=== PATIENT | female | born 1955 | race Caucasian/White ===

== ENCOUNTER → 2016-11-14 | Outpatient (CLI) | payer OTHER, MEDICAID ==
--- NOTE | 2016-11-14 19:19 | CT ---
Unenhanced CT Scan of the Chest Clinical History: 61-year-old female with a 40 year tobacco use history. Evaluate the condition of th e patient's lungs. ICD10 Diagnostic Code: F17.200. TECHNIQUE: A multidetector unenhanced helical CT scan was obtained from the base of the neck inferior ly to the upper abdomen, with images reformatted at 1.50 mm increments, and reviewed at a variety of window and level settings. Parasagittal and paracoronal reconstructed images are reviewed on the work station. The DFOV is 34.2 cm. A dose reduction protocol was used. COMPARISON STUDY: Chest radiography, dated April 20, 2010. FINDINGS: The lungs are well-expanded. There is some mild central perihilar bronchial wall thickening . There is some minimal centrilobular emphysema. There is no subpleural bullous change. There is a 3 mm subpleural nodule in the lateral left lower lobe on series 4 image 115. According to Fleischner So ciety guidelines, follow up CT imaging in 12 months is recommended in this high risk patient. There i s some minimal linear scarring in the inferolateral lingula. There is minor dependent change in the p osterior right costophrenic angle, and there is no focal infiltrate or pleural effusion. There is no adenopathy. The thoracic aortic contour cardiac chambers and the pericardium are normal. The visualiz ed upper abdomen is unremarkable. The osseous structures are age-appropriate, with some midthoracic d egenerative change. There is no lytic or blastic lesion. IMPRESSION: Mild peribronchial thickening and some minimal early centrilobular emphysema with a likel y-benign subpleural 3 mm nodule in the lateral left lower lobe. RECOMMENDATION: A [address] reevaluation is recommended in this patient with a chronic tobacco use history.
== END ==
LOC: FIMAGING 10:52
PROVIDERS: ATTEND Family Medicine
DX: R91.1 Solitary pulmonary nodule (principal); F17.200 Nicotine dependence, unspecified, uncomplicated

== ENCOUNTER → 2017-01-23 | Outpatient (CLI) | payer OTHER, MEDICAID | LOC: BHFA 14:30 | PROVIDERS: ATTEND Internal Medicine Cardiovascular Disease | DX: J44.9 Chronic obstructive pulmonary disease, unspecified (principal); F17.200 Nicotine dependence, unspecified, uncomplicated ==

== ENCOUNTER 2017-05-02 15:57 | Emergency (ER) | payer OTHER, MEDICAID ==
[2017-05-02 16:23] VITALS: BP 133/77; PULSE 82; RESP 18; TEMP 98.2; O2SAT 98
[2017-05-02] MEDS ORDERED: TDAP ADULT 0.5 ML INJ (BOOSTRIX) IM ONE ×2 (17:53→18:00)
--- NOTE | 2017-05-02 17:59 | EDPHY ---
H & P Stated Complaint: Pt's vaccinated cat bit L elbow about 4-5 days ago;under tx for cellulitis Time Seen by Provider: 05/02/17 17:59 - Personal History Current Tetanus Diphtheria and Acellular Pertussis (TDAP): Unsure Tetanus Vaccine Date: > 10 YEARS - Medical/Surgical History Hx Asthma: No Hx Chronic Respiratory Disease: No Hx Diabetes: No Hx Cardiac Disease: No Hx Renal Disease: No Hx Cirrhosis: No Hx Alcoholism: Yes Hx HIV/AIDS: No Hx Splenectomy or Spleen Trauma: No Other PMH: anxiety, depression, psychosis, PTSD - Social History Smoking Status: Current every day smoker Constitutional: Initial Vital Signs Temperature (C) 36.8 C 05/02/17 16:15 Heart Rate 82 05/02/17 16:15 Respiratory Rate 18 05/02/17 16:15 Blood Pressure 133/77 H 05/02/17 16:15 O2 Sat (%) 98 05/02/17 16:15 O2 Delivery Mode Room Air Allergies/Adverse Reactions: No Known Allergies Allergy (Verified 05/02/17 16:18) Home Medications: Medication Instructions Recorded Perphenazine [Trilafon 8mg (RX)] 24 mg PO HS 11/27/12 Effexor 04/02/16 Seroquel 04/02/16 Sulfamethox/Tmp 800/160 mg 05/02/17 [Bactrim DS] Medical Decision Making ED Course/Re-evaluation: CHIEF COMPLAINT: Cat bite HISTORY OF PRESENT ILLNESS: The patient is a 61 y/o female arriving at the referral of her PCP for possible infected cat bite on her left elbow. She was bitten on her left elbow about 4 days ago and developed some redness and pain that seemed to worsen over the next few days. She was started on Augmentin yesterday and feels her symptoms have improved; however, her PCP was concerned about osteomyelitis. She says, "I feel awesome." She has no difficulties with range of motion in her left arm or significant pain. She denies other complaints. REVIEW OF SYSTEMS: A 10 point review of systems was performed and is negative with the exception of the elements mentioned in the history of present illness. PHYSICAL EXAM: HR, BP, O2 Sat, RR. Temp noted General Appearance: Alert, well hydrated, appropriate, and non-toxic appearing. Head: Atraumatic without scalp tenderness or obvious injury Neck: Supple Respiratory: No distress Cardiovascular: Good capillary refill all extremities. Musculoskeletal: Slight erythema, warmth, and tenderness without fluctuance or evidence of abscess to left elbow. Normal active ROM of all extremities, other extremities are atraumatic. Neurological: Alert, appropriate, and interactive. Nonfocal neuro exam. Skin: No rashes, good turgor, no nodules on palpation. Past medical history: Denies Past surgical history: Denies Family history: noncontributory Social history: PCP: [facility] DIFFERENTIAL DIAGNOSIS: The differential diagnosis for the patient's elbow pain included but was not limited to cellulitis, abscess, joint infection. MEDICAL DECISION MAKING: Patient is well-appearing with mild erythema, warmth, and tenderness to left elbow. No signs of fluctuance, abscess, or osteomyelitis. No systemic symptoms. Patient reports she is feeling great and thinks her symptoms have improved since treatment. I recommended continuing her Augmentin as prescribed and following up with her PCP as needed. Return precautions given. She is comfortable with this plan. Departure - Departure Disposition: Home, Routine, Self-Care Clinical Impression: Cat bite of left forearm Qualifiers: Encounter type: initial encounter Qualified Code(s): S51.852A - Open bite of left forearm, initial encounter; W55.01XA - Bitten by cat, initial encounter Cellulitis Qualifiers: Site of cellulitis: extremity Site of cellulitis of extremity: upper extremity Laterality: left Qualified Code(s): L03.114 - Cellulitis of left upper limb Condition: Good Instructions: Animal Bite (ED), Cellulitis (ED) Additional Instructions: Continue Augmentin as prescribed. Be sure to complete entire prescription. Follow up with your primary care provider for worsening symptoms or failure to improve. Return to the ED for any significantly worsening symptoms. Referrals: Melany Kamara MD [Primary Care Provider] - As per Instructions Report Scribed for: Ramesh Whyte Report Scribed by: Annalise Wallace Date of Report: 05/02/17 Time of Report: 18:01
== END 2017-05-02 18:11 | disposition home or self-care (01) ==
PROC: 3E0234Z Introduction of Serum, Toxoid and Vaccine into Muscle, Percutaneous Approach (ICD-10-PCS; principal; 2017-05-02)
DX: S51.852A Open bite of left forearm, initial encounter (principal); L03.114 Cellulitis of left upper limb; F17.200 Nicotine dependence, unspecified, uncomplicated; Z23 Encounter for immunization; W55.01XA Bitten by cat, initial encounter

== ENCOUNTER → 2018-01-23 | Outpatient (CLI) | payer OTHER, MEDICAID | LOC: FIMAGING 12:22 | PROVIDERS: ATTEND Family Medicine | DX: Z12.31 Encounter for screening mammogram for malignant neoplasm of breast (principal) ==

== ENCOUNTER → 2018-03-06 | Outpatient (CLI) | payer OTHER, MEDICAID | LOC: FIMAGING 11:44 | PROVIDERS: ATTEND Family Medicine | DX: R91.1 Solitary pulmonary nodule (principal); I25.10 Atherosclerotic heart disease of native coronary artery without angina pectoris ==

== ENCOUNTER → 2018-07-10 | Outpatient (CLI) | payer OTHER, MEDICAID | LOC: FIMAGING 11:02 | PROVIDERS: ATTEND Physician Assistant | DX: Z13.820 Encounter for screening for osteoporosis (principal); M85.89 Other specified disorders of bone density and structure, multiple sites; Z78.0 Asymptomatic menopausal state ==

== ENCOUNTER → 2018-07-28 | Outpatient (CLI) | payer OTHER, MEDICAID | LOC: FIMAGING 15:41 | PROVIDERS: ATTEND Physician Assistant | DX: M25.551 Pain in right hip (principal) ==

== ENCOUNTER → 2019-03-12 | Outpatient (CLI) | payer OTHER, MEDICAID | LOC: FIMAGING 11:47 | PROVIDERS: ATTEND Family Medicine | DX: Z12.31 Encounter for screening mammogram for malignant neoplasm of breast (principal) ==